=== PATIENT | female | born 1945 | race Asian ===

== ENCOUNTER 2021-08-04 15:44 | Emergency (ER) | payer OTHER ==
[~2021-08-04] VITALS: Ht 165.1 cm; Wt 64.5 kg
[~2021-08-04 15:44] MED LIST: ASPIRIN81 M2 PO; COUMADIN 5 MG TA5 M1 PO; COZAAR100 MG PO; GLUCOPHAGE1000 MG PO; HYDRALAZINE 5050 M1 PO; LANOXIN 0.250.25 M1 PO; METOCLOPRAMIDE10 MG PO; NIFEDIPINE ER30 M1 PO; OMEGA-31000 M1 PO; SIMVASTATIN20 MG PO; TRAMADOL 50 MG50 MG PO
[2021-08-04 16:07] LABS: ABSOLUTE NEUTROPHILS 13.5 thou/uL (1.4-8.2); BASOPHILS 0.2 % (0.0-2.0); EOSINOPHILS 0.1 % (0.0-3.0); HEMATOCRIT 38.8 % (37.0-47.0); HEMOGLOBIN 12.7 gm/dL (12.0-15.0); LYMPHOCYTES 4.8 % (24.0-44.0); MCH 27.6 pg (26.0-34.0); MCHC 32.8 g/dL (28.0-37.0); MCV 84.3 fL (80.0-100.0); PLATELET COUNT 266 thou/uL (150-400); POLYS 89.9 % (36.0-66.0); RDW 14.5 % (10.5-14.5)
[2021-08-04 16:21] LABS: APTT 41.9 Seconds (24.5-32.8); CALCIUM 9.9 mg/dL (8.5-10.1); CREATININE 0.9 mg/dL (0.6-1.0); INR 3.3; POTASSIUM 3.2 mmol/L (3.5-5.1)
[2021-08-04 16:30] LABS: ALBUMIN 4.7 g/dL (3.4-5.0); TOTAL BILIRUBIN 0.7 mg/dL (0.2-1.0); TOTAL PROTEIN 8.4 g/dL (6.4-8.2)
[2021-08-04 17:25] VITALS: BP 166/84
--- NOTE | 2021-08-05 07:59 | EKG ---
[place] [address] [facility] [place] [address] ELECTROCARDIOGRAM REPORT Name: VANESSA PEREZ Room #: DEP Sari#: [id number] Admission: 08/04/21 Attend Phys: Discharge: 08/04/21 Date of : 47 Report #: [id number] [facility] ED Test Date: 2021-08-04 Test Time: 15:53:12 Pat Name: VANESSA PEREZ Department: Room: Gender: F Inspector Balance Wheel Motion: DIEGO : 1945 Requested By: Valerie England Order Number: [id number] MD: Miguel Case Measurements Intervals [place] Rate: 86 P: MI: QRS: 40 QRSD: 98 T: 223 QT: 374 QTc: 448 Interpretive Statements Atrial fibrillation Anteroseptal infarct, old Repol abnrm suggests ischemia, diffuse leads Compared to ECG 07/26/2012 02:55:02 Myocardial infarct finding now present Early repolarization now present ST (T wave) deviation no longer present Possible ischemia still present Electronically Signed On 08-05-2021 7:59:04 CIRCUIT RECORDER by Miguel Case [email or web address] <ELECTRONICALLY SIGNED> By: Miguel Case MD, FAC 08/05/21 [id number] Miguel Case MD, [facility] /EPI
== END 2021-08-04 17:29 | disposition short-term general hospital (02) ==
LOC: ER 15:44
PROVIDERS: Student in an Organized Health Care Education/Training Program
DX: I62.9 Nontraumatic intracranial hemorrhage, unspecified (principal); Z20.822 Contact with and (suspected) exposure to COVID-19; I10 Essential (primary) hypertension; I48.91 Unspecified atrial fibrillation; E11.9 Type 2 diabetes mellitus without complications; K21.9 Gastro-esophageal reflux disease without esophagitis; J45.909 Unspecified asthma, uncomplicated; Z90.89 Acquired absence of other organs; Z98.890 Other specified postprocedural states; Z86.73 Personal history of transient ischemic attack (TIA), and cerebral infarction without residual deficits; Z79.82 Long term (current) use of aspirin; Z79.891 Long term (current) use of opiate analgesic; Z79.899 Other long term (current) drug therapy